=== PATIENT | male | born 1980 | race Caucasian/White ===

== ENCOUNTER 2021-06-26 03:05 | Inpatient (IN) | payer MEDICAID, OTHER ==
[2021-06-26] MEDS ORDERED: Cefepime 2 GM VIAL ONE ×2 (03:43→15:59)
[2021-06-26] MEDS ORDERED: Vancomycin 1 GM/200 ML BAG ONE ×2 (03:43→15:59)
[2021-06-26 04:16] LABS: #Eosinphils 0.2 thou/uL (0.0-0.7); #Lymphocytes 0.5 thou/uL (1.20-3.40); #Monocytes 0.7 thou/uL (0.11-0.59); #Neutrophils 8.7 thou/uL (1.40-6.50); %Basophils 0.2 % (0.0-1.0); %Eosinophils 2.2 % (0.0-10.0); %Lymphocytes 4.5 % (21.0-51.0); %Monocytes 7.3 % (0.0-10.0); %Neutrophils 85.8 % (42.0-75.0); Hemoglobin 11.2 g/dL (14.0-18.0); Mean Corpuscular HGB CONC 32.9 g/dL (32.0-36.0); Mean Corpuscular Hemoglobin 26.3 pg (27.0-31.0); Mean Corpuscular Volume 80.1 fL (78.0-98.0); Mean Platelet Volume 7.4 fL (7.4-10.4); Platelet Count 245 thou/uL (130-400); RBC Distribution Width 18.2 % (11.5-14.5); Red Blood Cell (RBC) Count 4.27 mill/uL (4.70-6.10); White Blood Cell (WBC) Count 10.2 thou/uL (4.8-10.8)
[2021-06-26 04:38] LABS: ALT (SGPT) 11 U/L (8-55); AST (SGOT) 14 U/L (5-34); Albumin 3.3 g/dL (3.5-5.0); Alkaline Phosphatase 50 U/L (40-110); Anion Gap 11 mmol/L (10-20); BUN (Urea Nitrogen) 38 mg/dL (8.9-20.6); Bilirubin, Total 0.5 mg/dL (0.2-1.2); Calc. Creatinine Clearance 0 mL/min (70-130); Calcium 9.3 mg/dL (7.8-10.44); Carbon Dioxide 23 mmol/L (22-29); Chloride 106 mmol/L (98-107); Globulin 3.4 g/dL (2.4-3.5); Glucose 119 mg/dL (70-105); Potassium 5.1 mmol/L (3.5-5.1); Protein, Total 6.7 g/dL (6.0-8.3); Sodium 135 mmol/L (136-145)
[2021-06-26 04:50] LABS: SARS-CoV-2 NAA Rapid Test DETECTED (NotDetected)
[2021-06-26] MEDS ORDERED: Furosemide 40 MG/4 ML VIAL ONE (05:08)
[2021-06-26] MEDS ORDERED: Dextrose 50% Abboject 50 ML SYRINGE SLOW IVP PRN (09:12)
[2021-06-26] MEDS ORDERED: Dextrose 5% in Water 1,000 ML IV PRN (09:12)
[2021-06-26] MEDS ORDERED: Dexamethasone 10 MG/ML VIAL ONE (09:28)
[2021-06-26] MEDS ORDERED: Pantoprazole 40 MG VIAL ONE (09:28)
[2021-06-26] MEDS ORDERED: Dexamethasone 10 MG/ML VIAL SLOW IVP SCH (09:30)
[2021-06-26] MEDS ORDERED: Pantoprazole 40 MG VIAL IVP SCH (09:30)
[2021-06-26] MEDS ORDERED: Labetalol HCl 100 MG/20 ML VIAL SLOW IVP PRN (09:39)
[2021-06-26] MEDS ORDERED: Iopamidol-370 76% 500 ML 1 ML ONE (09:44)
[2021-06-26] MEDS ORDERED: Amlodipine 10 MG TAB PO SCH (09:45)
[2021-06-26] MEDS ORDERED: hydrALAZINE 20 MG/ML VIAL ONE ×2 (09:45→17:20)
[2021-06-26 09:53] LABS: Actual Bicarbonate (HCO3a) 22.3 mEq/L (22-28); Analyzer IN Cardio ER; Base Excess (BEa) -3.4 mEq/L (-2.0 to +3.0); CO2 Tension 42.6 mmHg (35.0-45.0); Calcium, Ionized (arterial) 1.23 mmol/L (1.12-1.30); Carboxyhemoglobin (COHb) 0.2 gm% (0.0-3.0); Hemoglobin (Hb) 11.5 g/dL (14.0-18.0); O2 Tension (PaO2), arterial 73.7 mmHg (80.0-100.0); Potassium - ABG Lab 5.08 mmol/L (3.70-5.30); pH, Arterial 7.34 (7.35-7.45)
[2021-06-26 09:59] LABS: Puncture Site LRA
[2021-06-26] MEDS: hydrALAZINE 20 MG/ML VIAL SLOW IVP PRN (10:00)
[2021-06-26] MEDS ORDERED: Labetalol HCl 100 MG/20 ML VIAL ONE ×2 (11:05→17:20)
[2021-06-26] MEDS ORDERED: Morphine 2 MG/ML VIAL SLOW IVP PRN (14:36)
[2021-06-26] MEDS ORDERED: Fentanyl 100 MCG/2 ML VIAL SLOW IVP PRN (14:36)
[2021-06-26 15:31] LABS: ALT (SGPT) 13 U/L (8-55); AST (SGOT) 14 U/L (5-34); Albumin 3.5 g/dL (3.5-5.0); Alkaline Phosphatase 55 U/L (40-110); Anion Gap 15 mmol/L (10-20); BUN (Urea Nitrogen) 42 mg/dL (8.9-20.6); Bilirubin, Total 0.4 mg/dL (0.2-1.2); Calc. Creatinine Clearance 0 mL/min (70-130); Calcium 9.5 mg/dL (7.8-10.44); Carbon Dioxide 22 mmol/L (22-29); Chloride 103 mmol/L (98-107); Globulin 3.6 g/dL (2.4-3.5); Glucose 264 mg/dL (70-105); Potassium 5.1 mmol/L (3.5-5.1); Protein, Total 7.1 g/dL (6.0-8.3); Sodium 135 mmol/L (136-145)
[2021-06-26] MEDS ORDERED: Morphine 4 MG/ML VIAL ONE (15:59)
[2021-06-26] MEDS: Cefepime 2 GM in Sodium Chloride 0.9% 100 ML IVPB SCH (16:00)
[2021-06-26] MEDS: Vancomycin 1 GM in Premix Bag 1 BAG IVPB SCH (16:00)
[2021-06-26] MEDS ORDERED: Enoxaparin Sodium 80 MG/0.8 ML SYRINGE SC SCH (17:45)
[2021-06-26] MEDS ORDERED: Vancomycin 1 GM in Premix Bag 1 BAG IVPB SCH (21:00)
[2021-06-26] MEDS: HumaLOG 300 UNITS/3 ML VIAL SC PRN (21:09)
[2021-06-27] MEDS: Cefepime 2 GM in Sodium Chloride 0.9% 100 ML IVPB SCH ×2 (03:54→15:27)
[2021-06-27] MEDS: Vancomycin 1 GM in Premix Bag 1 BAG IVPB SCH ×2 (04:56→16:49)
[2021-06-27] MEDS: hydrALAZINE 20 MG/ML VIAL SLOW IVP PRN ×4 (05:58→15:32)
[2021-06-27] MEDS: HumaLOG 300 UNITS/3 ML VIAL SC PRN ×3 (05:58→17:23)
[2021-06-27] MEDS ORDERED: Polyethylene Glycol 3350 17 GM Packet PO PRN (07:19)
[2021-06-27] MEDS ORDERED: Senokot S 8.6-50 MG TAB PO PRN (07:19)
[2021-06-27] MEDS ORDERED: traMADol HCl 50 MG TAB PO PRN (07:19)
[2021-06-27] MEDS ORDERED: HumaLOG 300 UNITS/3 ML VIAL SC PRN (07:25)
[2021-06-27] MEDS ORDERED: Amlodipine 10 MG TAB PO SCH (09:00)
[2021-06-27] MEDS ORDERED: Pantoprazole 40 MG VIAL IVP SCH (09:00)
[2021-06-27] MEDS: guaiFENesin ER 600 MG TAB PO SCH ×2 (09:06→20:01)
[2021-06-27] MEDS: Ascorbic Acid 500 mg Chewable Tablet PO SCH (09:06)
[2021-06-27] MEDS: Multivit, Therapeutic 1 TAB PO SCH (09:07)
[2021-06-27] MEDS: Zinc Sulfate 220 MG CAP PO SCH (09:07)
[2021-06-27] MEDS: Dexamethasone 10 MG/ML VIAL SLOW IVP SCH (09:07)
[2021-06-27] MEDS: hydrALAZINE 25 MG TAB PO SCH ×3 (09:07→20:01)
[2021-06-27] MEDS: Aspirin 81 mg Enteric Coated Tablet PO SCH (09:07)
[2021-06-27] MEDS: Amlodipine 10 MG TAB PO SCH (09:07)
[2021-06-27 09:50] LABS: CRP (Inflammatory) 1.17 mg/dL (= or < 0.5); Magnesium 2.1 mg/dL (1.6-2.6); Phosphorus 5.6 mg/dL (2.3-4.7)
[2021-06-27 09:51] LABS: ALT (SGPT) 12 U/L (8-55); AST (SGOT) 14 U/L (5-34); Albumin 3.2 g/dL (3.5-5.0); Alkaline Phosphatase 51 U/L (40-110); Anion Gap 11 mmol/L (10-20); BUN (Urea Nitrogen) 50 mg/dL (8.9-20.6); Bilirubin, Total 0.3 mg/dL (0.2-1.2); Calc. Creatinine Clearance 113 mL/min (70-130); Calcium 9.2 mg/dL (7.8-10.44); Carbon Dioxide 24 mmol/L (22-29); Chloride 105 mmol/L (98-107); Globulin 3.3 g/dL (2.4-3.5); Glucose 237 mg/dL (70-105); Potassium 5.2 mmol/L (3.5-5.1); Protein, Total 6.5 g/dL (6.0-8.3); Sodium 135 mmol/L (136-145)
[2021-06-27 11:16] VITALS: BMI 42.3
[2021-06-27] MEDS ORDERED: NPH, Human Insulin Isophane 300 UNIT/3 ML VIAL SC SCH (17:45)
[2021-06-27] MEDS ORDERED: Furosemide 20 MG/2 ML VIAL SLOW IVP SCH (17:45)
[2021-06-27] MEDS ORDERED: Electrolyte Replacement Protocol 1 EACH FS SCH (17:45)
[2021-06-27] MEDS: Enoxaparin Sodium 80 MG/0.8 ML SYRINGE SC SCH (20:02)
[2021-06-28 03:54] LABS: #Lymphocytes 0.8 thou/uL (1.20-3.40); #Monocytes 0.8 thou/uL (0.11-0.59); #Neutrophils 4.2 thou/uL (1.40-6.50); %Basophils 0.2 % (0.0-1.0); %Eosinophils 0.3 % (0.0-10.0); %Lymphocytes 14.2 % (21.0-51.0); %Monocytes 14.3 % (0.0-10.0); Hemoglobin 10.8 g/dL (14.0-18.0); Mean Corpuscular HGB CONC 32.6 g/dL (32.0-36.0); Mean Corpuscular Hemoglobin 26.1 pg (27.0-31.0); Mean Platelet Volume 7.6 fL (7.4-10.4); Platelet Count 218 thou/uL (130-400); RBC Distribution Width 17.9 % (11.5-14.5); Red Blood Cell (RBC) Count 4.15 mill/uL (4.70-6.10); White Blood Cell (WBC) Count 5.8 thou/uL (4.8-10.8)
[2021-06-28 04:15] LABS: Vancomycin, Trough 19.3 ug/mL
[2021-06-28 04:17] LABS: ALT (SGPT) 14 U/L (8-55); AST (SGOT) 20 U/L (5-34); Alkaline Phosphatase 45 U/L (40-110); Anion Gap 14 mmol/L (10-20); BUN (Urea Nitrogen) 56 mg/dL (8.9-20.6); Bilirubin, Total 0.3 mg/dL (0.2-1.2); CRP (Inflammatory) Less than 0.50 mg/dL (= or < 0.5); Calc. Creatinine Clearance 115 mL/min (70-130); Calcium 9.1 mg/dL (7.8-10.44); Carbon Dioxide 20 mmol/L (22-29); Chloride 104 mmol/L (98-107); Globulin 3.4 g/dL (2.4-3.5); Glucose 201 mg/dL (70-105); Magnesium 2.1 mg/dL (1.6-2.6); Phosphorus 5.4 mg/dL (2.3-4.7); Potassium 5.3 mmol/L (3.5-5.1); Protein, Total 6.4 g/dL (6.0-8.3); Sodium 133 mmol/L (136-145)
[2021-06-28] MEDS: Cefepime 2 GM in Sodium Chloride 0.9% 100 ML IVPB SCH ×2 (04:20→18:31)
[2021-06-28] MEDS: Vancomycin 1 GM in Premix Bag 1 BAG IVPB SCH ×2 (05:03→17:41)
[2021-06-28] MEDS: Furosemide 20 MG/2 ML VIAL SLOW IVP SCH ×2 (05:04→15:02)
[2021-06-28] MEDS: HumaLOG 300 UNITS/3 ML VIAL SC PRN (06:21)
[2021-06-28] MEDS ORDERED: NPH, Human Insulin Isophane 300 UNIT/3 ML VIAL SC SCH (08:00)
[2021-06-28] MEDS: NPH, Human Insulin Isophane 300 UNIT/3 ML VIAL SC SCH ×2 (09:50→17:41)
[2021-06-28] MEDS: hydrALAZINE 25 MG TAB PO SCH ×3 (09:53→22:06)
[2021-06-28] MEDS: Multivit, Therapeutic 1 TAB PO SCH (09:54)
[2021-06-28] MEDS: guaiFENesin ER 600 MG TAB PO SCH ×2 (09:54→22:06)
[2021-06-28] MEDS: Zinc Sulfate 220 MG CAP PO SCH (09:54)
[2021-06-28] MEDS: Aspirin 81 mg Enteric Coated Tablet PO SCH (09:54)
[2021-06-28] MEDS: Ascorbic Acid 500 mg Chewable Tablet PO SCH (09:54)
[2021-06-28] MEDS: Amlodipine 10 MG TAB PO SCH (09:55)
[2021-06-28] MEDS: Dexamethasone 10 MG/ML VIAL SLOW IVP SCH (09:56)
[2021-06-28] MEDS: Enoxaparin Sodium 80 MG/0.8 ML SYRINGE SC SCH (22:11)
[2021-06-29] MEDS: Vancomycin 1 GM in Premix Bag 1 BAG IVPB SCH ×2 (03:40→16:17)
[2021-06-29] MEDS: Cefepime 2 GM in Sodium Chloride 0.9% 100 ML IVPB SCH (04:54)
[2021-06-29] MEDS: Furosemide 20 MG/2 ML VIAL SLOW IVP SCH ×2 (04:55→14:46)
[2021-06-29 06:16] LABS: #Lymphocytes 0.9 thou/uL (1.20-3.40); #Monocytes 0.8 thou/uL (0.11-0.59); #Neutrophils 4.4 thou/uL (1.40-6.50); %Basophils 0.1 % (0.0-1.0); %Eosinophils 0.3 % (0.0-10.0); %Lymphocytes 15.1 % (21.0-51.0); %Monocytes 12.5 % (0.0-10.0); %Neutrophils 71.9 % (42.0-75.0); Hemoglobin 10.8 g/dL (14.0-18.0); Mean Corpuscular HGB CONC 32.5 g/dL (32.0-36.0); Mean Corpuscular Volume 80.1 fL (78.0-98.0); Mean Platelet Volume 7.7 fL (7.4-10.4); Platelet Count 214 thou/uL (130-400); RBC Distribution Width 17.4 % (11.5-14.5); Red Blood Cell (RBC) Count 4.14 mill/uL (4.70-6.10); White Blood Cell (WBC) Count 6.2 thou/uL (4.8-10.8)
[2021-06-29] MEDS: HumaLOG 300 UNITS/3 ML VIAL SC PRN (06:24)
[2021-06-29 06:39] LABS: ALT (SGPT) 15 U/L (8-55); AST (SGOT) 15 U/L (5-34); Alkaline Phosphatase 44 U/L (40-110); Anion Gap 10 mmol/L (10-20); BUN (Urea Nitrogen) 55 mg/dL (8.9-20.6); Bilirubin, Total 0.3 mg/dL (0.2-1.2); CRP (Inflammatory) Less than 0.50 mg/dL (= or < 0.5); Calc. Creatinine Clearance 127 mL/min (70-130); Calcium 9.1 mg/dL (7.8-10.44); Carbon Dioxide 26 mmol/L (22-29); Chloride 104 mmol/L (98-107); Globulin 3.1 g/dL (2.4-3.5); Glucose 232 mg/dL (70-105); Potassium 4.9 mmol/L (3.5-5.1); Protein, Total 6.1 g/dL (6.0-8.3); Sodium 135 mmol/L (136-145)
[2021-06-29] MEDS ORDERED: Magnesium 2 GM/50 ML 2 GM in Premix Bag 1 BAG IVPB SCH (08:00)
[2021-06-29] MEDS: guaiFENesin ER 600 MG TAB PO SCH ×3 (09:56→21:23)
[2021-06-29] MEDS: Ascorbic Acid 500 mg Chewable Tablet PO SCH ×2 (09:56→10:24)
[2021-06-29] MEDS: Aspirin 81 mg Enteric Coated Tablet PO SCH ×2 (09:56→10:24)
[2021-06-29] MEDS: NIFEdipine XL 30 MG TAB PO SCH (09:57)
[2021-06-29] MEDS: hydrALAZINE 25 MG TAB PO SCH ×3 (09:57→21:21)
[2021-06-29] MEDS: Zinc Sulfate 220 MG CAP PO SCH ×2 (09:58→10:25)
[2021-06-29] MEDS: Multivit, Therapeutic 1 TAB PO SCH ×2 (09:58→10:24)
[2021-06-29] MEDS: Dexamethasone 10 MG/ML VIAL SLOW IVP SCH (09:59)
[2021-06-29] MEDS: Amlodipine 10 MG TAB PO SCH (09:59)
[2021-06-29] MEDS: NPH, Human Insulin Isophane 300 UNIT/3 ML VIAL SC SCH ×2 (10:01→17:26)
[2021-06-29 15:36] LABS: Vancomycin, Trough 24.8 ug/mL
[2021-06-29] MEDS ORDERED: Vancomycin HCl 750 MG in Sodium Chloride 0.9% 250 ML 250 ML IVPB SCH (16:15)
[2021-06-29] MEDS: Doxycycline 100 MG CAP PO SCH (21:21)
[2021-06-29] MEDS: Enoxaparin Sodium 80 MG/0.8 ML SYRINGE SC SCH (21:21)
[2021-06-29] MEDS ORDERED: Nicotine 21 MG PATCH TD SCH (22:30)
[2021-06-30] MEDS ORDERED: Vancomycin HCl 750 MG in Sodium Chloride 0.9% 250 ML 250 ML IVPB SCH (04:00)
[2021-06-30 06:53] LABS: #Lymphocytes 1.2 thou/uL (1.20-3.40); #Monocytes 0.8 thou/uL (0.11-0.59); #Neutrophils 3.7 thou/uL (1.40-6.50); %Basophils 0.2 % (0.0-1.0); %Eosinophils 0.6 % (0.0-10.0); %Lymphocytes 21.8 % (21.0-51.0); %Monocytes 13.3 % (0.0-10.0); Hemoglobin 11.4 g/dL (14.0-18.0); Mean Corpuscular HGB CONC 32.6 g/dL (32.0-36.0); Mean Corpuscular Hemoglobin 25.6 pg (27.0-31.0); Mean Corpuscular Volume 78.4 fL (78.0-98.0); Mean Platelet Volume 7.8 fL (7.4-10.4); Platelet Count 200 thou/uL (130-400); RBC Distribution Width 17.3 % (11.5-14.5); Red Blood Cell (RBC) Count 4.47 mill/uL (4.70-6.10); White Blood Cell (WBC) Count 5.7 thou/uL (4.8-10.8)
[2021-06-30 07:11] LABS: Anion Gap 11 mmol/L (10-20); BUN (Urea Nitrogen) 40 mg/dL (8.9-20.6); Calc. Creatinine Clearance 150 mL/min (70-130); Calcium 8.8 mg/dL (7.8-10.44); Carbon Dioxide 27 mmol/L (22-29); Chloride 101 mmol/L (98-107); Glucose 128 mg/dL (70-105); Sodium 135 mmol/L (136-145)
[2021-06-30] MEDS ORDERED: Dexamethasone 4 MG TAB PO SCH ×2 (08:00)
[2021-06-30] MEDS: NPH, Human Insulin Isophane 300 UNIT/3 ML VIAL SC SCH (08:43)
[2021-06-30] MEDS: Ascorbic Acid 500 mg Chewable Tablet PO SCH (08:54)
[2021-06-30] MEDS: Aspirin 81 mg Enteric Coated Tablet PO SCH (08:54)
[2021-06-30] MEDS: Doxycycline 100 MG CAP PO SCH (08:54)
[2021-06-30] MEDS: NIFEdipine XL 30 MG TAB PO SCH (08:55)
[2021-06-30] MEDS: guaiFENesin ER 600 MG TAB PO SCH (08:55)
[2021-06-30] MEDS: Multivit, Therapeutic 1 TAB PO SCH (08:55)
[2021-06-30] MEDS: hydrALAZINE 25 MG TAB PO SCH (08:55)
[2021-06-30] MEDS: Zinc Sulfate 220 MG CAP PO SCH (08:56)
[2021-06-30] MEDS ORDERED: Furosemide 20 MG TAB PO SCH (09:00)
[2021-06-30] MEDS: HumaLOG 300 UNITS/3 ML VIAL SC PRN (11:53)
[2021-06-30 11:56] VITALS: BP 176/82; TEMP 98.2
[2021-07-01] MEDS ORDERED: Potassium Chloride 10 MEQ TAB PO SCH (08:00)
== END 2021-06-30 15:00 | DRG 871 ==
LOC: ERS 03:05 → ERHOLD 05:16 → IMCU/EMU 17:43 → ERHOLD 18:43 → T4-A 18:51 → 2SW 06-27 21:36
PROVIDERS: ADMIT Internal Medicine; ATTEND Internal Medicine
PROC: 5A09357 Assistance with Respiratory Ventilation, Less than 24 Consecutive Hours, Continuous Positive Airway Pressure (ICD-10-PCS; principal; 2021-06-26)
PROC: 8E0ZXY6 Isolation (ICD-10-PCS; 2021-06-26)
PROC: 3E0333Z Introduction of Anti-inflammatory into Peripheral Vein, Percutaneous Approach (ICD-10-PCS; 2021-06-26)
DX: A41.89 Other specified sepsis (principal); U07.1 COVID-19; J96.01 Acute respiratory failure with hypoxia; J12.82 Pneumonia due to coronavirus disease 2019; I50.33 Acute on chronic diastolic (congestive) heart failure; N17.9 Acute kidney failure, unspecified; I13.0 Hypertensive heart and chronic kidney disease with heart failure and stage 1 through stage 4 chronic kidney disease, or unspecified chronic kidney disease; Z68.41 Body mass index [BMI] 40.0-44.9, adult; F17.220 Nicotine dependence, chewing tobacco, uncomplicated; E78.5 Hyperlipidemia, unspecified; E66.01 Morbid (severe) obesity due to excess calories; L89.159 Pressure ulcer of sacral region, unspecified stage; D63.1 Anemia in chronic kidney disease; E87.5 Hyperkalemia; G47.30 Sleep apnea, unspecified; E11.22 Type 2 diabetes mellitus with diabetic chronic kidney disease; E78.00 Pure hypercholesterolemia, unspecified; N18.2 Chronic kidney disease, stage 2 (mild); F41.9 Anxiety disorder, unspecified; F32.A Depression, unspecified; E83.42 Hypomagnesemia; Z79.4 Long term (current) use of insulin; Z79.899 Other long term (current) drug therapy; Z89.512 Acquired absence of left leg below knee; Z90.49 Acquired absence of other specified parts of digestive tract; R65.20 Severe sepsis without septic shock
CPT/HCPCS: 0240U; 36415; 36416; 36600; 71045; 71275; 80048; 80053; 80202; 82805; 83605; 83735; 83880; 84100; 84145; 84484; 85025; 85379; 86140; 87040; 93005; 94660; 96365; 96367; 96375; C9113; J0360; J0692; J1100; J1650; J1815; J1940; J2270; J3370; J3475; J3490; J8540; Q9967

== ENCOUNTER 2021-11-10 15:45 | Inpatient (IN) | payer OTHER ==
[2021-11-10 16:39] LABS: #Eosinphils 0.4 thou/uL (0.0-0.7); #Monocytes 1.9 thou/uL (0.11-0.59); #Neutrophils 14.6 thou/uL (1.40-6.50); %Basophils 0.2 % (0.0-1.0); %Eosinophils 2.3 % (0.0-10.0); %Lymphocytes 10.3 % (21.0-51.0); %Monocytes 10.1 % (0.0-10.0); %Neutrophils 77.1 % (42.0-75.0); Hemoglobin 11.1 g/dL (14.0-18.0); Mean Corpuscular Volume 83.8 fL (78.0-98.0); Mean Platelet Volume 7.3 fL (7.4-10.4); Platelet Count 454 thou/uL (130-400); RBC Distribution Width 14.1 % (11.5-14.5); Red Blood Cell (RBC) Count 4.26 mill/uL (4.70-6.10); White Blood Cell (WBC) Count 18.9 thou/uL (4.8-10.8)
[2021-11-10 17:09] LABS: ALT (SGPT) 34 U/L (8-55); AST (SGOT) 23 U/L (5-34); Albumin 2.6 g/dL (3.5-5.0); Alkaline Phosphatase 230 U/L (40-110); Anion Gap 14 mmol/L (10-20); BUN (Urea Nitrogen) 46 mg/dL (8.9-20.6); Bilirubin, Total 0.3 mg/dL (0.2-1.2); Calc. Creatinine Clearance 0 mL/min (70-130); Calcium 8.7 mg/dL (7.8-10.44); Carbon Dioxide 24 mmol/L (22-29); Chloride 98 mmol/L (98-107); Globulin 4.7 g/dL (2.4-3.5); Glucose 246 mg/dL (70-105); Potassium 3.7 mmol/L (3.5-5.1); Protein, Total 7.3 g/dL (6.0-8.3); Sodium 132 mmol/L (136-145)
[2021-11-10] MEDS ORDERED: Ondansetron PF 4 MG/2 ML Vial ONE (18:50)
[2021-11-10] MEDS ORDERED: Piperacillin/Tazobactam 3.375 GM VIAL ONE (18:50)
[2021-11-10] MEDS ORDERED: Clindamycin/D5W 900 mg/50 ml Premix Bag ONE (20:56)
[2021-11-10] MEDS ORDERED: Ondansetron ODT 4 MG TAB PO PRN (23:21)
[2021-11-10] MEDS ORDERED: HYDROcodone/Acetaminophen 10/325 mg Tablet PO PRN (23:21)
[2021-11-10] MEDS ORDERED: Acetaminophen 325 MG TAB PO PRN (23:21)
[2021-11-10] MEDS ORDERED: DAPTOmycin 500 MG in Sodium Chloride 0.9% 100 ML IVPB SCH (23:30)
[2021-11-11 01:12] VITALS: BMI 45.8
[2021-11-11] MEDS ORDERED: Cefepime 1 GM in Sodium Chloride 0.9% 100 ML IVPB SCH (02:00)
[2021-11-11 03:27] LABS: SARS-CoV-2 NAA Rapid Test Not Detected (NotDetected)
[2021-11-11] MEDS: Cefepime 2 GM in Sodium Chloride 0.9% 100 ML IVPB SCH ×2 (04:01→17:05)
[2021-11-11 06:13] LABS: Hemoglobin 10.5 g/dL (14.0-18.0); Mean Corpuscular HGB CONC 31.9 g/dL (32.0-36.0); Mean Corpuscular Hemoglobin 26.7 pg (27.0-31.0); Mean Corpuscular Volume 83.8 fL (78.0-98.0); Mean Platelet Volume 7.3 fL (7.4-10.4); Platelet Count 419 thou/uL (130-400); RBC Distribution Width 14.2 % (11.5-14.5); Red Blood Cell (RBC) Count 3.93 mill/uL (4.70-6.10); White Blood Cell (WBC) Count 19.5 thou/uL (4.8-10.8)
[2021-11-11] MEDS: metroNIDAZOLE 500 MG TAB PO SCH ×3 (06:22→20:55)
[2021-11-11 06:30] LABS: Anion Gap 14 mmol/L (10-20); BUN (Urea Nitrogen) 44 mg/dL (8.9-20.6); Calc. Creatinine Clearance 87 mL/min (70-130); Calcium 8.5 mg/dL (7.8-10.44); Carbon Dioxide 22 mmol/L (22-29); Chloride 100 mmol/L (98-107); Glucose 267 mg/dL (70-105); Potassium 3.9 mmol/L (3.5-5.1); Sodium 132 mmol/L (136-145)
[2021-11-11 06:37] LABS: Band 8 % (5-11); Eosinophils 1 % (0-10); Lymphocytes 5 % (21-51); MDiff Complete? YES; Monocytes 4 % (0-10); Neutrophil 82 % (42-75)
[2021-11-11] MEDS ORDERED: Dextrose 50% Abboject 50 ML SYRINGE SLOW IVP PRN (08:11)
[2021-11-11] MEDS ORDERED: Insulin Regular 300 UNITS/3 ML VIAL SC PRN (08:11)
[2021-11-11] MEDS ORDERED: Dextrose 5% in Water 1,000 ML IV PRN (08:11)
[2021-11-11] MEDS: hydrALAZINE 25 MG TAB PO SCH ×3 (08:31→20:56)
[2021-11-11 08:32] LABS: Hemoglobin A1c 8.5 % (4.0-6.0)
[2021-11-11] MEDS: Sodium Chloride 0.9% 1,000 ML IV SCH ×2 (08:34→17:06)
[2021-11-11] MEDS: Aspirin 81 mg Enteric Coated Tablet PO SCH (08:35)
[2021-11-11] MEDS: Heparin 5,000 UNITS/ML VIAL SC SCH ×3 (08:35→20:57)
[2021-11-11] MEDS: Nystatin Powder 15 GM BOT TOP SCH ×2 (08:38→22:26)
[2021-11-11] MEDS ORDERED: Linezolid 600 MG TAB PO SCH (09:00)
[2021-11-11] MEDS ORDERED: metroNIDAZOLE 500 MG/100 ML BAG ONE (15:00)
[2021-11-11] MEDS ORDERED: fentaNYL Citrate/PF 100 MCG/2 ML SYRINGE ONE (15:10)
[2021-11-11] MEDS ORDERED: PROPOFOL 200 MG/20 ML VIAL ONE (15:16)
[2021-11-11] MEDS ORDERED: Ondansetron PF 4 MG/2 ML Vial ONE (15:16)
[2021-11-11] MEDS ORDERED: Lidocaine 1% PF 5 ML VIAL ONE (15:16)
[2021-11-11] MEDS ORDERED: Meperidine HCl/PF 25 MG/ML VIAL SLOW IVP PRN (16:15)
[2021-11-11] MEDS ORDERED: PACU-Morphine 4MG/ML VIAL SLOW IVP PRN (16:15)
[2021-11-11] MEDS ORDERED: Promethazine HCl 25 MG/ML VIAL IVPB PRN (16:15)
[2021-11-11] MEDS ORDERED: Promethazine HCl 25 MG/ML VIAL IM PRN (16:15)
[2021-11-11] MEDS ORDERED: Insulin Glargine 30 UNITS/0.3 ML VIAL SC SCH (21:00)
[2021-11-11] MEDS ORDERED: Sodium Chloride 0.9% 1,000 ML IV SCH (21:00)
[2021-11-12] MEDS: Cefepime 2 GM in Sodium Chloride 0.9% 100 ML IVPB SCH (03:01)
[2021-11-12] MEDS: metroNIDAZOLE 500 MG TAB PO SCH (05:23)
[2021-11-12] MEDS: Insulin Regular 300 UNITS/3 ML VIAL SC PRN ×3 (05:30→17:00)
[2021-11-12 06:59] LABS: #Basophils 0.1 thou/uL (0.0-0.2); #Eosinphils 0.3 thou/uL (0.0-0.7); #Lymphocytes 0.9 thou/uL (1.20-3.40); #Monocytes 0.7 thou/uL (0.11-0.59); #Neutrophils 11.4 thou/uL (1.40-6.50); %Basophils 0.5 % (0.0-1.0); %Eosinophils 2.4 % (0.0-10.0); %Lymphocytes 6.9 % (21.0-51.0); %Monocytes 5.2 % (0.0-10.0); Mean Corpuscular HGB CONC 30.8 g/dL (32.0-36.0); Mean Corpuscular Hemoglobin 26.5 pg (27.0-31.0); Mean Corpuscular Volume 86.2 fL (78.0-98.0); Mean Platelet Volume 7.2 fL (7.4-10.4); Platelet Count 409 thou/uL (130-400); RBC Distribution Width 14.4 % (11.5-14.5); Red Blood Cell (RBC) Count 3.77 mill/uL (4.70-6.10); White Blood Cell (WBC) Count 13.4 thou/uL (4.8-10.8)
[2021-11-12 07:19] LABS: Anion Gap 12 mmol/L (10-20); BUN (Urea Nitrogen) 48 mg/dL (8.9-20.6); Calc. Creatinine Clearance 74 mL/min (70-130); Calcium 8.3 mg/dL (7.8-10.44); Carbon Dioxide 24 mmol/L (22-29); Chloride 100 mmol/L (98-107); Glucose 318 mg/dL (70-105); Potassium 4.3 mmol/L (3.5-5.1); Sodium 132 mmol/L (136-145)
[2021-11-12] MEDS: hydrALAZINE 25 MG TAB PO SCH ×3 (08:21→19:47)
[2021-11-12] MEDS: Aspirin 81 mg Enteric Coated Tablet PO SCH (08:22)
[2021-11-12] MEDS: Heparin 5,000 UNITS/ML VIAL SC SCH ×3 (08:22→19:47)
[2021-11-12] MEDS: Nystatin Powder 15 GM BOT TOP SCH ×2 (08:22→21:26)
[2021-11-12] MEDS ORDERED: Insulin Glargine 30 UNITS/0.3 ML VIAL SC SCH (09:30)
[2021-11-12] MEDS: Sodium Chloride 0.9% 1,000 ML IV SCH ×3 (09:56→21:26)
[2021-11-12] MEDS: Morphine 2 MG/ML VIAL SLOW IVP PRN (11:18)
[2021-11-12 11:49] LABS: Bilirubin Negative (Negative); Blood, Urine 1+ (Negative); Clarity Clear (Clear); Glucose, Urine (Dipstick) Greater than 1000 mg/dL (Negative); Ketone, Urine Negative (Negative); Leukocyte Negative Leu/uL (Negative); Nitrite Negative (Negative); Protein, Urine (Dipstick) 200 mg/dL (Neg-Trace); Specific Gravity, Urine 1.021 (1.002-1.036); Urobilinogen Normal mg/dL (Less than 2); pH, Urine 5.5 (5.0-9.0)
[2021-11-12 11:55] LABS: Urine Culture Reflex No No
[2021-11-12] MEDS ORDERED: Meropenem 1 GM in Sodium Chloride 0.9% 100 ML IVPB SCH ×2 (12:45→21:00)
[2021-11-12] MEDS: Morphine 4 MG/ML VIAL SLOW IVP PRN (19:38)
[2021-11-12] MEDS: Insulin Glargine 30 UNITS/0.3 ML VIAL SC SCH (19:47)
[2021-11-12] MEDS ORDERED: Metoclopramide HCl 10 MG/2 ML VIAL IVP PRN (21:09)
[2021-11-12] MEDS: Meropenem 1 GM in Sodium Chloride 0.9% 100 ML IVPB SCH (21:25)
[2021-11-13] MEDS: Morphine 2 MG/ML VIAL SLOW IVP PRN (01:03)
[2021-11-13] MEDS: hydrALAZINE 20 MG/ML VIAL SLOW IVP PRN (01:04)
[2021-11-13] MEDS: Meropenem 1 GM in Sodium Chloride 0.9% 100 ML IVPB SCH ×3 (05:05→22:38)
[2021-11-13] MEDS: Insulin Regular 300 UNITS/3 ML VIAL SC PRN (06:06)
[2021-11-13] MEDS: hydrALAZINE 25 MG TAB PO SCH ×3 (09:29→20:19)
[2021-11-13] MEDS: Aspirin 81 mg Enteric Coated Tablet PO SCH (09:29)
[2021-11-13] MEDS: Heparin 5,000 UNITS/ML VIAL SC SCH ×3 (09:29→20:21)
[2021-11-13] MEDS: Nystatin Powder 15 GM BOT TOP SCH ×2 (09:29→20:21)
[2021-11-13] MEDS: Insulin Glargine 30 UNITS/0.3 ML VIAL SC SCH ×2 (09:29→20:21)
[2021-11-13 10:02] LABS: Anion Gap 9 mmol/L (10-20); BUN (Urea Nitrogen) 40 mg/dL (8.9-20.6); Calc. Creatinine Clearance 102 mL/min (70-130); Calcium 8.2 mg/dL (7.8-10.44); Carbon Dioxide 25 mmol/L (22-29); Chloride 106 mmol/L (98-107); Glucose 193 mg/dL (70-105); Potassium 3.9 mmol/L (3.5-5.1); Sodium 136 mmol/L (136-145)
[2021-11-13 10:23] LABS: Band 7 % (5-11); Hemoglobin 11.7 g/dL (14.0-18.0); Lymphocytes 8 % (21-51); MDiff Complete? YES; Mean Corpuscular HGB CONC 30.3 g/dL (32.0-36.0); Mean Corpuscular Hemoglobin 25.6 pg (27.0-31.0); Mean Corpuscular Volume 84.5 fL (78.0-98.0); Mean Platelet Volume 6.8 fL (7.4-10.4); Monocytes 5 % (0-10); Myelocyte 2 % (0-0); Neutrophil 78 % (42-75); Platelet Count 543 thou/uL (130-400); Platelet Morphology Comment Appears Increased; Polychromasia SLIGHT = 2-3 cells (100X) (0-2/hpf); RBC Distribution Width 14.2 % (11.5-14.5); Red Blood Cell (RBC) Count 4.55 mill/uL (4.70-6.10); White Blood Cell (WBC) Count 16.7 thou/uL (4.8-10.8)
[2021-11-13] MEDS: Sodium Chloride 0.9% 1,000 ML IV SCH ×2 (11:57)
[2021-11-13] MEDS: Gabapentin 400 MG CAP PO SCH (20:19)
[2021-11-14] MEDS: Sodium Chloride 0.9% 1,000 ML IV SCH (02:07)
[2021-11-14] MEDS: Insulin Regular 300 UNITS/3 ML VIAL SC PRN ×2 (05:33→11:34)
[2021-11-14] MEDS: Meropenem 1 GM in Sodium Chloride 0.9% 100 ML IVPB SCH ×2 (05:33→13:29)
[2021-11-14] MEDS: Aspirin 81 mg Enteric Coated Tablet PO SCH (08:11)
[2021-11-14] MEDS: Gabapentin 400 MG CAP PO SCH ×2 (08:11→14:08)
[2021-11-14] MEDS: Insulin Glargine 30 UNITS/0.3 ML VIAL SC SCH (08:12)
[2021-11-14] MEDS: Heparin 5,000 UNITS/ML VIAL SC SCH ×2 (08:12→14:08)
[2021-11-14] MEDS: Nystatin Powder 15 GM BOT TOP SCH (08:12)
[2021-11-14] MEDS: hydrALAZINE 25 MG TAB PO SCH ×3 (08:12→13:30)
[2021-11-14] MEDS: Morphine 4 MG/ML VIAL SLOW IVP PRN (09:03)
[2021-11-14 09:23] LABS: Anion Gap 10 mmol/L (10-20); BUN (Urea Nitrogen) 37 mg/dL (8.9-20.6); Calc. Creatinine Clearance 110 mL/min (70-130); Calcium 8.4 mg/dL (7.8-10.44); Carbon Dioxide 26 mmol/L (22-29); Chloride 103 mmol/L (98-107); Glucose 279 mg/dL (70-105); Potassium 3.9 mmol/L (3.5-5.1); Sodium 135 mmol/L (136-145)
[2021-11-14 09:55] LABS: Hemoglobin 11.4 g/dL (14.0-18.0); Mean Corpuscular HGB CONC 30.8 g/dL (32.0-36.0); Mean Corpuscular Hemoglobin 26.1 pg (27.0-31.0); Mean Corpuscular Volume 84.6 fL (78.0-98.0); Mean Platelet Volume 6.7 fL (7.4-10.4); Platelet Count 563 thou/uL (130-400); RBC Distribution Width 14.6 % (11.5-14.5); Red Blood Cell (RBC) Count 4.37 mill/uL (4.70-6.10); White Blood Cell (WBC) Count 13.4 thou/uL (4.8-10.8)
[2021-11-14 09:56] LABS: Band 15 % (5-11); Eosinophils 2 % (0-10); Hypochromia SLIGHT = 6-15 cells (100X) (0-5/hpf); Lymphocytes 8 % (21-51); MDiff Complete? YES; Metamyelocyte 2 % (0-0); Monocytes 4 % (0-10); Myelocyte 5 % (0-0); Neutrophil 60 % (42-75); Platelet Morphology Comment Appears Increased; Polychromasia SLIGHT = 2-3 cells (100X) (0-2/hpf); Reactive Lymphocytes 4 % (0-10)
[2021-11-14 11:13] VITALS: TEMP 99
[2021-11-14] MEDS: hydrALAZINE 20 MG/ML VIAL SLOW IVP PRN (11:21)
[2021-11-14 12:52] VITALS: BP 125/73
[2021-11-14] MEDS ORDERED: hydrALAZINE 25 MG TAB PO SCH (15:00)
== END 2021-11-14 15:17 | DRG 853 ==
LOC: ERS 15:45 → T4-A 20:16
PROVIDERS: ADMIT Internal Medicine; ATTEND Internal Medicine
PROC: 3E03329 Introduction of Other Anti-infective into Peripheral Vein, Percutaneous Approach (ICD-10-PCS; principal; 2021-11-10)
PROC: 0Y6M0ZF Detachment at Right Foot, Partial 5th Ray, Open Approach (ICD-10-PCS; 2021-11-11)
DX: A41.02 Sepsis due to Methicillin resistant Staphylococcus aureus (principal); A48.0 Gas gangrene; Z68.42 Body mass index [BMI] 45.0-49.9, adult; E11.52 Type 2 diabetes mellitus with diabetic peripheral angiopathy with gangrene; N17.9 Acute kidney failure, unspecified; E87.1 Hypo-osmolality and hyponatremia; L03.115 Cellulitis of right lower limb; L02.611 Cutaneous abscess of right foot; Z16.23 Resistance to quinolones and fluoroquinolones; Z16.29 Resistance to other single specified antibiotic; Z20.822 Contact with and (suspected) exposure to COVID-19; F32.A Depression, unspecified; R65.20 Severe sepsis without septic shock; E66.01 Morbid (severe) obesity due to excess calories; E78.5 Hyperlipidemia, unspecified; F41.9 Anxiety disorder, unspecified; E11.621 Type 2 diabetes mellitus with foot ulcer; L97.519 Non-pressure chronic ulcer of other part of right foot with unspecified severity; N18.30 Chronic kidney disease, stage 3 unspecified; E11.22 Type 2 diabetes mellitus with diabetic chronic kidney disease; D63.1 Anemia in chronic kidney disease; I12.9 Hypertensive chronic kidney disease with stage 1 through stage 4 chronic kidney disease, or unspecified chronic kidney disease; E78.00 Pure hypercholesterolemia, unspecified; G47.33 Obstructive sleep apnea (adult) (pediatric); F17.220 Nicotine dependence, chewing tobacco, uncomplicated; E11.40 Type 2 diabetes mellitus with diabetic neuropathy, unspecified; Z28.21 Immunization not carried out because of patient refusal; Z88.1 Allergy status to other antibiotic agents; Z89.512 Acquired absence of left leg below knee; Z79.899 Other long term (current) drug therapy; Z83.3 Family history of diabetes mellitus; Z82.49 Family history of ischemic heart disease and other diseases of the circulatory system; Z79.4 Long term (current) use of insulin
CPT/HCPCS: 36415; 36416; 80048; 80053; 81001; 83036; 83605; 83735; 85025; 85652; 86140; 87040; 87070; 87077; 87186; 87205; 88305; 88311; 93005; 94760; 96365; 96367; 96375; J0360; J0692; J1644; J1815; J2185; J2270; J2405; J2543; J2704; J2765; J3490; J7050; Q0162; U0002; U0003; U0005